=== PATIENT | female | born 1985 | race Caucasian/White ===

== ENCOUNTER 2017-03-05 05:42 | Emergency (ER) | payer BC ==
[~2017-03-05] VITALS: Ht 162.6 cm; Wt 83.5 kg
[2017-03-05 05:47] VITALS: Ht 162.6 cm; Wt 83.5 kg
--- NOTE | 2017-03-05 07:36 | ERD ---
ER Documentation Chief Complaint Date/Time DATE: 03/05/17 TIME: 07:36 Chief Complaint cough x 3 days, fever at rtimes, nasal congestion HPI This is a 31-year-old female who presents the emergency department today complaining of cough for the past 3 days intermittent fevers and sore throat and nasal congestion. States that son also has similar symptoms. Denies any vomiting, diarrhea ROS All systems reviewed and are negative except as per history of present illness. Medications Home Meds Active Scripts Fluticasone Propionate (Flonase Allergy Relief) 9.9 Ml [place].susp, 2 SPRAY NASAL DAILY, #1 BOTTLE TO EACH NOSTRIL Prov:JAIR LAUGHLIN PA-C 03/05/17 Cetirizine Hcl* (Zyrtec*) 10 Mg Capsule, 10 MG PO DAILY, #14 TAB.CHEW Prov:JAIR LAUGHLIN PA-C 03/05/17 Guaifenesin-Dextromethorphan* (Robitussin* DM) 100MG/10MG/5ML Syrup, 10 ML PO Q4H Y for COUGH for 5 Days, ML Prov:JAIR LAUGHLIN PA-C 03/05/17 Acetaminophen* (Tylophen*) 500 Mg Capsule, 1 CAP PO Q6H Y for PAIN AND OR ELEVATED TEMP, #30 CAP Prov:JAIR LAUGHLIN PA-C 03/05/17 Ibuprofen* (Motrin*) 600 Mg Tab, 600 MG PO Q6, #30 TAB Prov:JAIR LAUGHLIN PA-C 03/05/17 Allergies Allergies: Coded Allergies: No Known Allergy (Unverified , 03/05/17) PMhx/Soc Medical and Surgical Hx: pt denies Medical Hx, pt denies Surgical Hx Hx Alcohol Use: No Hx Substance Use: No Hx Tobacco Use: No Physical Exam Vitals Vital Signs Date Time Temp Pulse Resp B/P Pulse Ox O2 Delivery O2 Flow Rate FiO2 03/05/17 05:47 98.4 89 20 125/86 98 Physical Exam Const: NAD Head: Atraumatic Eyes: Normal Conjunctiva ENT: TMs normal. Nose no drainage. Throat erythema no exudate no vesicles Neck: Full range of motion..~ No meningismus. Resp: Clear to auscultation bilaterally Cardio: Regular rate and rhythm, no murmurs Abd: Soft, non tender, non distended. Normal bowel sounds Skin: No petechiae or rashes Neur: Awake and alert Psych: Normal Mood and Affect Results 24 hrs RUN DATE: 03/05/17 [facility] PAGE 1 RUN TIME: [id number] [place] [address] Bo Craig M.D. Group Director Experience HERNAN#: [id number] Name: MANFREDPRISCILLA Age/Sex: 31/F Attend Dr: ANT ESTRADA MD Acct: [id number] MR# : [id number] : 1985 Location: [facility] Admit: 03/05/17 Specimen: [id number] Status: Complete Natali: 03/05/17 Rcvd: 03/05 Source: EMILIA Guidry Descrip: Procedure Result Microbiology INFLUENZA A & B BY EIA Final INFLU A&B BY EIA INFLUENZA A NEGATIVE (Ref Range Neg) INFLUENZA B NEGATIVE (Ref Range Neg) ................................................................................ ............ Flags: Critical Hi = *H Critical Lo = *L Microbiology Abnormal = * Abnormal Hi = H Abnormal Lo = L Blood Bank Abnormal = * Susceptability Flags: S = Sensitive R = Resistant I = Intermediate END OF REPORT Procedures/MDM This is a 31-year-old female who presents the emergency department today complaining of influenza-like symptoms and URI symptoms. Patient is here in the emergency department with her son with similar symptoms. I did obtain an influenza swab. Influenza A and B is negative Patient is afebrile here in the emergency department. Her oxygen saturation is 98% I do not feel that she requires a chest x-ray at this time. I have low suspicion for pneumonia, PE, abscess, pleural effusion. Low suspicion for strep pharyngitis, retropharyngeal abscess, acute bacterial sinusitis, sepsis.. Patient will be given a prescription for Bibi Tinocoyrtec, Tylenol and Motrin for symptom control. At this time the patient is stable for discharge and outpatient management. Patient should follow up with their PCP in the next 1-2 days. They may return to the emergency department sooner for any persistent or worsening of symptoms. Patient understood and agreed with the plan. Departure Diagnosis: Primary Impression: URI (upper respiratory infection) URI type: unspecified URI Qualified Code: J06.9 - Upper respiratory tract infection, unspecified type Condition: JAIR Sykes PA-C Mar 05, 2017 07:36
[2017-03-05] MEDS ORDERED: ACET500C5 PO (08:02)
[2017-03-05] MEDS ORDERED: IBUP-1542 PO (08:02)
[2017-03-05] MEDS ORDERED: UDROBDM PO (08:03)
[2017-03-05] MEDS ORDERED: CETI10CA PO (08:04)
[2017-03-05] MEDS ORDERED: FLUT9.9S NASAL (08:05)
== END 2017-03-05 09:01 | disposition home or self-care (01) ==
LOC: FTE 05:42
DX: J06.9 Acute upper respiratory infection, unspecified (principal)
CPT/HCPCS: 87400; Z7502; 99283